=== PATIENT | male | born 1980 | race Caucasian/White ===

== ENCOUNTER 2023-06-03 19:48 | Emergency (ER) | payer OTHER, SELFPAY ==
[2023-06-03 19:55] VITALS: BP 172/80; PULSE 101; RESP 18; TEMP 38.3; O2SAT 99; BMI 43.5
--- NOTE | 2023-06-03 20:27 | CTR_ITS ---
PROCEDURE INFORMATION: Exam: CT Abdomen And Pelvis With Contrast Exam date and time: 06/03/2023 8:54 PM Age: 42 years old Clinical indication: Fever and other: Cellulitis; Prior surgery; Surgery date: 6+ months; Surgery type: Gb. Umbilical hernia; Patient HX: Localized region of redness to lower anterior surface of abd that appears to be onset of cellulitis. Fever. ; Additional info: Abscess, abdominal pain, fever TECHNIQUE: Imaging protocol: Computed tomography of the abdomen and pelvis with contrast. Radiation optimization: All CT scans at this facility use at least one of these dose optimization techniques: automated exposure control; mA and/or kV adjustment per patient size (includes targeted exams where dose is matched to clinical indication); or iterative reconstruction. Contrast material: OMNI 350; Contrast volume: 100 ml; Contrast route: INTRAVENOUS (IV); REPORTING DATA: Count of CT and Cardiac NM exams in prior 12 months: This patient has received 0 known CTs and 0 known cardiac nuclear medicine studies in the 12 months prior to the current study. COMPARISON: No relevant prior studies available. RADIATION DOSE METRICS: Total DLP (mGy-cm): 1309.93 FINDINGS: Liver: Unremarkable. Gallbladder and bile ducts: Cholecystectomy. Pancreas: Unremarkable. No duct dilation. Spleen: Unremarkable. Adrenal glands: Unremarkable. Kidneys and ureters: Bilateral subcentimeter renal hypodensities, too small to characterize. Small left and punctate right nonobstructing renal calculi. No hydronephrosis or hydroureter. Stomach and bowel: No bowel obstruction. Appendix: No evidence of appendicitis. Intraperitoneal space: Unremarkable. No free air. No significant fluid collection. Vasculature: No abdominal aortic aneurysm. Lymph nodes: No enlarged lymph nodes. Urinary bladder: Unremarkable as visualized. Reproductive: Unremarkable as visualized. Bones/joints: No acute fracture. No aggressive osseous lesions. Soft tissues: Diffuse skin thickening with underlying subcutaneous inflammatory stranding in the lower ventral abdominal wall, suggesting cellulitis. No discrete drainable collection. Small fat containing periumbilical hernia. CT/CT abdomen pelvis w con* [id number] IMPRESSION: Cellulitis and underlying subcutaneous inflammation in the lower ventral abdominal wall. No discrete drainable collection. COMMENTS: Consistent with the [employer]'s Incidental Findings Committee white paper (J Am Rohith Radiol 2018): Any incidental renal lesion less than 1 cm or classified as too small to characterize, or any incidental cystic renal lesion characterized as simple-appearing, is likely benign. No follow-up imaging is recommended for these lesions per consensus recommendations based on imaging criteria.
[2023-06-03] MEDS: iohexol 350 mg/mL 500 mL Btl (per mL) IV (20:52)
[2023-06-03 20:55] LABS: Basophils # 0.1 10^3/uL (0.0-0.1); Basophils % 0.3 %; Eosinophils % 0.2 %; Hematocrit 46.6 % (37-53); Lymphocytes # 3.4 10^3/uL (0.8-4.8); Mean Corpuscular HGB Conc 32.8 g/dL (30-55); Mean Corpuscular Hemoglobin 30.8 pg (27-33); Mean Platelet Volume 11.1 fL (7.4-10.4); Monocytes # 1.6 10^3/uL (0.2-0.9); Monocytes % 8.4 %; Neutrophils # 13.65 10^3/uL (1.8-7.7); Neutrophils % 72.6 %; Nucleated Red Blood Cells % 0 %; Platelet Count 228 10^3/cmm (157-399); Red Blood Count 4.96 10^6/uL (3.85-5.65); Red Cell Distribution Width 14.6 % (12.1-15.1); White Blood Count 18.81 10^3/uL (3.29-11.43)
--- NOTE | 2023-06-03 21:00 | ED_ITS ---
HPI - Skin/Abscess/Foreign Bdy General: Chief complaint: Skin/Abscess/Foreign Body Stated complaint: absess on abd Time Seen by Provider: 06/03/23 20:16 History of Present Illness: Patient is a 42-year-old man that presents to the emergency department with complaints of abscess to the lower abdomen. Onset of symptoms originally 3 days ago. He began using Prid and today he developed this spreading redness and purulent drainage from a small 5 mm opening in the skin. Patient reports fevers and chills and has now developed this diffuse abdominal discomfort and tenderness to palpation. Patient has a history of gout with a recent gout flareup. He has a history of gout and hypothyroidism. Associated symptoms: Reports chills and fever(s); Deny nausea or vomiting Review of Systems General: Reports: 10 or more systems reviewed and unremarkable except in HPI and below Const: Reports: fever(s), chills, fatigue and malaise; Denies: change in appetite or change in weight Eyes: Denies: change in vision, eye discomfort, eye discharge or eye redness ENMT: Denies: throat pain, enlarged tonsils, odynophagia, hoarseness, ear or mastoid pain, ear discharge, change in hearing, tinnitus, nasal discharge, nasal congestion, post nasal drip or sinus pain Card: Denies: chest pain, palpitations, irregular heart rhythm, edema, dyspnea on exertion, orthopnea or leg pain with exertion Resp: Denies: dyspnea, productive cough, non-productive cough, wheezing, stridor or chest congestion GI: Reports: abdominal pain; Denies: nausea, vomiting, dysphagia, diarrhea, constipation, bloating, GI cramping or hematochezia : Denies: flank pain, dysuria, urinary frequency, urinary urgency, urinary hesitancy, oliguria or hematuria Musc: Denies: neck pain, back pain, extremity pain, joint pain, joint swelling, joint redness, joint warmth or muscle weakness Skin/Breast: Denies: rash, pruritus, erythema, photosensitivity or new lesions Neuro: Denies: headache(s), numbness in extremities, weakness in extremities, sensory changes, lack of coordination, difficulty walking, frequent falls, dizziness, confusion, Slurred speech present, difficulty communicating thoughts, seizure-like activity or involuntary movements Endo: Denies: polyuria, polydipsia or tired all the time David/Lymph: Denies: easy bruising or easy bleeding Physical Exam Const: COMMON NORMALS: no acute distress, patient oriented x3 and alert GENERAL APPEARANCE: cooperative ORIENTATION/CONSCIOUSNESS: Yes awake, Yes oriented to person, Yes oriented to place and Yes oriented to time HENMT: COMMON NORMALS: normocephalic and atraumatic HEAD & SCALP: normocephalic and atraumatic FACE & SINUS: normal facial exam MOUTH: Normal oral and palatal mucosa present THROAT: posterior oropharynx normal Eye: COMMON NORMALS: Equal, round and reactive pupils present, EOMs intact bilaterally, conjunctivae normal and no scleral icterus GENERAL EYE: appearance normal, both eyes and all related structures ALIGNMENT: Yes alignment normal PERIORBITAL: periorbital findings normal CONJUNCTIVA: Yes conjunctivae normal PUPIL: Yes Equal, round and reactive pupils present Neck/C-Spine: COMMON NORMALS: full ROM GENERAL: Yes normal visual inspection Lymph: LYMPHATIC: no lymphadenopathy noted Chest: COMMONS NORMALS: normal inspection of the chest Breast/axilla i nspection: Yes no chest deformity, asymmetry, normal contours, no nodules, masses, tenderness Resp: COMMON NORMALS: normal respiratory effort, No retractions, No use of accessory muscles and clear to auscultation bilaterally EFFORT & INSPECTION: Yes able to speak in complete sentences and Yes symmetric chest movement AUSCULTATION: clear to auscultation bilaterally Cardio: COMMON NORMALS: regular rate, regular rhythm and Peripheral pulses 2+ throughout RATE: regular rate RHYTHM: regular rhythm PERIPHERAL PULSES: Peripheral pulses 2+ throughout GI: COMMON NORMALS: Normal to inspection, nondistended, normoactive bowel sounds present, Soft to palpation, non-tender and No hepatosplenomegaly present INSPECTION: Yes normal to inspection AUSCULTATION: Yes normoactive bowel sounds PALPATION: Yes Soft to palpation and Yes No hepatosplenomegaly present RECTAL EXAM: Yes deferred GI image (male): 1. Erythematous warm and indurated. No fluctuance 2. 5 mm opening with purulent drainage Extremity: COMMON NORMALS: normal to inspection GENERAL: Yes normal exam except as noted Neuro: COMMON NORMALS: patient oriented x3 SENSORIUM/ORIENTATION: Yes alert, Yes oriented to person, Yes oriented to place and Yes oriented to time CRANIAL NERVES: Yes CN normal except as noted Psych: COMMON NORMALS: mental status grossly normal, Normal thought process present, cooperative, activity/motor behavior normal, denies homicidal ideation and denies suicidal ideation THOUGHT PROCESS: Normal thought process present Skin: COMMON NORMALS: no rashes or lesions noted, no wounds and turgor normal GENERAL SKIN EXAM: no rashes or lesions noted and turgor normal Course Vital Signs: Vital signs: Vital Signs Temperature 101.0 F H 06/03/23 19:55 Pulse Rate 95 06/03/23 21:53 Respiratory Rate 19 H 06/03/23 21:53 Blood Pressure 185/84 06/03/23 21:53 Pulse Oximetry 100 06/03/23 21:53 Oxygen Delivery Me thod Room Air 06/03/23 19:55 MDM - Skin/Abscess/Foreign Bdy Medicial Decision Making This is a 42 yo male that presents with Cellulitis And a draining abscess to his abdomen. Patient states he has been running fevers and chilling as well. Differential diagnosis cellulitis, abscess, intra-abdominal abscess. Patient underwent a CT of the abdomen pelvis with contrast which revealed cellulitis and underlying subcutaneous inflammation in the lower ventral abdominal wall; no discrete drainable collection. His lactic acid is normal He does have a high white count otherwise laboratory studies are unremarkable. Blood cultures pending. I gave him a liter of fluid and started him on clindamycin due to Bactrim allergy. I have instructed the patient to monitor his symptoms closely but I think he is doing well enough to discharge home. If he worsens or does not improve in the next 48 hours he might need to be reevaluated. Patient verbalized understanding. Patient can follow-up with PCP or return here as needed. All questions answered Lab Data 06/03/23 20:48 06/03/23 21:32 Radiology Impressions Abdomen/Pelvis CT 06/03/23 20:27 IMPRESSION: Cellulitis and underlying subcutaneous inflammation in the lower ventral abdominal wall. No discrete drainable collection. COMMENTS: Consistent with the [employer]'s Incidental Findings Committee white paper (J Am Rohith Radiol 2018): Any incidental renal lesion less than 1 cm or classified as too small to characterize, or any incidental cystic renal lesion characterized as simple-appearing, is likely benign. No follow-up imaging is recommended for these lesions per consensus recommendations based on imaging criteria. Laboratory Results WBC 18.81 10^3/uL (3.29-11.43) H 06/03/23 20:48 RBC 4.96 10^6/uL (3.85-5.65) 06/03/23 20:48 Hgb 15.30 g/dL (11.27-16.99) 06/03/23 20:48 Hct 46.6 % (37-53) 06/03/23 20:48 MCV 94.0 fl (82-101) 06/03/23 20:48 MCH 30.8 pg (27-33) 06/03/23 20:48 MCHC 32.8 g/dL (30-55) 06/03/23 20:48 RDW 14.6 % (12.1-15.1) 06/03/23 20:48 Plt Count 228 10^3/cmm (157-399) 06/03/23 20:48 MPV 11.1 fL (7.4-10.4) H 06/03/23 20:48 Neut % (Auto) 72.6 % 06/03/23 20:48 Lymph % (Auto) 18.0 % 06/03/23 20:48 Gates % (Auto) 8.4 % 06/03/23 20:48 Eos % (Auto) 0.2 % 06/03/23 20:48 Baso % (Auto) 0.3 % 06/03/23 20:48 Neut # (Auto) 13.65 10^3/uL (1.8-7.7) H 06/03/23 20:48 Lymph # (Auto) 3.4 10^3/uL (0.8-4.8) 06/03/23 20:48 Gates # (Auto) 1.6 10^3/uL (0.2-0.9) H 06/03/23 20:48 Eos # (Auto) 0.0 10^3/uL (0.0-0.8) 06/03/23 20:48 Baso # (Auto) 0.1 10^3/uL (0.0-0.1) 06/03/23 20:48 Nucleated RBC % (auto) 0 % 06/03/23 20:48 Nucleated RBCs # 0.0 /100WBC 06/03/23 20:48 Sodium 136 mmol/L (136-145) 06/03/23 21:32 Potassium 3.7 mmol/L (3.5-5.1) 06/03/23 21:32 Chloride 99 mmol/L (98-107) 06/03/23 21:32 Carbon Dioxide 28 mmol/L (22-29) 06/03/23 21:32 Anion Gap 12.7 (5-19) 06/03/23 21:32 BUN 12 mg/dL (6-20) 06/03/23 21:32 Creatinine 1.0 mg/dL (0.7-1.2) 06/03/23 21:32 GFR Calculation 82.3 mL/min (90-130) L 06/03/23 21:32 Glucose 101 mg/dL (65-115) 06/03/23 21:32 Calculated Osmolality 282 mOsm/kg (285-295) L 06/03/23 21:32 Lactic Acid 1.3 mmol/L (0.5-2.2) 06/03/23 21:32 Calcium 8.8 mg/dL (8.5-10.5) 06/03/23 21:32 Total Bilirubin 0.7 mg/dL (0.15-1.2) 06/03/23 21:32 AST 20 U/L (0-40) 06/03/23 21:32 ALT 39 U/L (0-41) 06/03/23 21:32 Alkaline Phosphatase 61 U/L (40-130) 06/03/23 21:32 Total Protein 7.0 g/dL (6.6-8.7) 06/03/23 21:32 Albumin 4.0 g/dL (3.5-5.2) 06/03/23 21:32 Globulin 3.0 g/dL (1.3-4.6) 06/03/23 21:32 All radiology interpretation(s) finalized by discharge Discharge Plan Discharge Patient Disposition: Home Clinical Impression: Cellulitis, Abscess of skin or subcutaneous tissue Condition: Stable Prescriptions: New clindamycin HCl 150 mg capsule 450 mg PO TID 7 Days Qty: 63 0RF No Action Synthroid 200 mcg tablet allopurinol 300 mg tablet Zyrtec 10 mg Tablet 10 mg PO DAILY Xiidra 5 % dropperette prednisone 10 mg Tablets,Dose Pack 0 mg PO PER PKG DIR Discharge Orders: Discharge ED (Routine); Ordered 06/03/23 Ordered By: Nola Flores McTeer Referrals: Allen Yates DO [Primary Care Provider] - Discharge Diet: Advance as tolerated Discharge Activity: Resume usual activity Patient Instructions: Clindamycin (By mouth), Cellulitis (ED), Abscess (ED), Pain Management Activity Restrictions/Additional Instructions: Please return to the emergency department for new, concerning, worsening symptoms Take your antibiotics as prescribed Coding Level of Care Code ED Sole Leveler Machine for Catherine Mauro
[2023-06-03] MEDS: clindamycin 150 mg Capsule 450 MG PO (21:33)
[2023-06-03] MEDS: acetaminophen 325 mg Tablet 1000 MG PO (21:36)
[2023-06-03] MEDS: sodium chloride 0.9% 1,000 ML 999 ML IV (21:36)
[2023-06-03 21:53] VITALS: BP 185/84; PULSE 95; RESP 19; O2SAT 100
[2023-06-03 21:59] LABS: Lactic Sepsis W/Reflex 1.3 mmol/L (0.5-2.2)
[2023-06-03 22:00] LABS: Alanine Aminotransferase 39 U/L (0-41); Alkaline Phosphatase 61 U/L (40-130); Anion Gap 12.7 (5-19); Aspartate Amino Transferase 20 U/L (0-40); Blood Urea Nitrogen 12 mg/dL (6-20); Calcium 8.8 mg/dL (8.5-10.5); Carbon Dioxide 28 mmol/L (22-29); Chloride 99 mmol/L (98-107); Glomerular Filtration Rate 82.3 mL/min (90-130); Glucose 101 mg/dL (65-115); Osmolality Calculated 282 mOsm/kg (285-295); Potassium 3.7 mmol/L (3.5-5.1); Sodium 136 mmol/L (136-145); Total Bilirubin 0.7 mg/dL (0.15-1.2)
== END 2023-06-03 22:58 | disposition home or self-care (01) ==
PROVIDERS: Emergency Provider Nurse Practitioner; PCP Family Medicine
DX: L03.311 Cellulitis of abdominal wall (principal); L02.211 Cutaneous abscess of abdominal wall
CPT/HCPCS: 36415; 74177; 80053; 83605; 85025; 87040; 96360; 99285; J7030; Q9967